=== PATIENT | female | born 1990 | race Caucasian/White ===

== ENCOUNTER 2016-08-31 09:54 | Emergency (ER) | payer OTHER ==
[2016-08-31] MEDS ORDERED: NORMAL SALINE 1,000 ML IV ONE (10:16)
--- NOTE | 2016-08-31 10:21 | ERNOTE ---
Medical Problem HPI - Narrative Date of Service: 08/31/16 - General Chief Complaint: Nausea/Vomiting Time Seen by Provider: 08/31/16 10:12 Source: patient Exam Limitations: no limitations - Immun/Allergies/Home Medications Immunizations: IMMUNIZATION HX Immunizations Up to Date Yes History of Influenza Vaccine No Hx Pneumococcal Vaccination No Allergies/Adverse Reactions: Allergies No Known Allergies Allergy (Verified 08/31/16 10:04) Home Medications: HOME MEDICATIONS [id number]/FA/Omega3/Dha/Fish Oil [ Gummies] 1 each PO DAILY 08/31/16 [Last Taken Unknown] - Pain Score Pain Score #1 Pain Score: 0 - History of Present History Narrative: Patient states she is 17 weeks , A0, and went out to eat at a [employer] restaurant last night about 2030. States about 0100 began to vomit "every 30 minutes". States her and another friend, who both ate chicken, are the only ones who are now having symptoms. Complains of NVD, denies abdominal pain, cramping, vaginal bleeding or discharge. States she has attempted sips of water last night but "threw it all back up". States she has had sips of water [employer] and is now keeping it down. Date (Duration): 08/31/16 Time (Timing): 01:00 Timing: resolved prior to arrival Severity: moderate Modifying Factors - (Worsens): Present: other - drinking/eating Review of Systems - Review of Systems Constitutional: Present: no symptoms reported, chills. Absent: recent illness, fever, diaphoresis, weakness, fatigue, malaise, weight loss EYE: Present: no symptoms reported ENT: Present: no symptoms reported Respiratory: Present: no symptoms reported. Absent: shortness of breath Cardiology: Present: no symptoms reported. Absent: chest pain, palpitations, syncope Gastrointestinal/Abdominal: Present: nausea, vomiting, diarrhea, eating less, drinking less. Absent: constipation, abdominal pain Genitourinary: Present: no symptoms reported. Absent: frequency, pain, dysuria , hematuria Musculoskeletal: Present: no symptoms reported. Absent: back pain, muscle pain Skin: Present: no symptoms reported. Absent: rash, dryness, lesions Neurological: Present: no symptoms reported Endocrine: Present: no symptoms reported Hematologic/Lymphatic: Present: no symptoms reported Psych: Present: no symptoms reported - Patient's Past Medical History Patient History - Medical: No pertinent hx Patient History - Cardiac/Respiratory: No pertinent hx Patient History - Cancer: No Hx of Cancer Patient History - Surgical Procedures: No surgical history, Other Patient History - Other: None LMP (females 10-50): LMP (Calendar): 12/07/15 - Social History Living Situations: alone Abuse History: No History of abuse Psych History: No pertinent hx Smoking Status: Never smoker Do you dip or chew tobacco: No Alcohol Use: none Drug Use: none - Immunizations Immunizations Up to Date: Yes Hx Pneumococcal Vaccination: No History of Influenza Vaccine: No Physical Exam - Physical Exam General Appearance: Present: wd/wn, alert, no apparent distress Eye Exam: Normal inspection: bilateral, PERRL: bilateral Ears, Nose, Throat: Present: normal ENT inspection, normal pharynx, dry mucous membranes. Absent: pharyngeal erythema, pharyngeal swelling, tonsillar exudate Neck: Present: normal inspection, nontender Respiratory: Present: no respiratory distress, normal breath sounds, no accessory muscle use, chest nontender, lungs clear. Absent: crackles, rales, rhonchi, stridor, wheezing Cardiovascular/Chest: Present: regular rate, rhythm, no murmur, normal peripheral pulses Peripheral Pulses: N=norm/S=strong/W=weak/B=bound/A=absent: Radial (R): Normal, Radial (L): Normal Gastrointestinal/Abdominal: Present: normal bowel sounds, nontender, nondistended, soft, no organomegaly Rectal Exam: Present: deferred Back Exam: Present: normal range of motion, no CVA tenderness, no vertebral tenderness Extremity Exam: Present: normal inspection, non-tender, normal range of motion, pedal edema Neurological Exam: Present: alert, oriented, normal mood/affect, no motor/ sensory deficits Skin Exam: Present: normal color, warm/dry Lymphatic Exam: Present: no adenopathy ED Progress - Results and Orders Patient's Lab Results:: I have reviewed the patient's lab results. - Vital Signs Patient's Vital Signs:: I have reviewed the patient's vital signs. Vital Signs: Vital Signs 08/31/16 09:58 Temperature 36.1 C L Pulse Rate 83 Respiratory 15 Rate Blood Pressure 134/75 O2 Sat by Pulse 98 Oximetry - Progress/Reassessment Chief Complaint: Nausea/Vomiting Progress:: Improved Progress Note-Subjective: 08/31/16 11:09 Patient states she feels better after 1/3 IVF infused. States she has not vomited since arriving in ED. Continues to deny abdominal pain. Will wait for urine sample and proceed with ice chips. Continues to decline Zofran at this time. 08/31/16 12:10 Continues to deny NVD. States she feels significantly better after IVF in. Urine sample obtained, awaiting lab results. Patient consumed 1/2 cup ice chips , will have her take sips of water. Patient updated on lab results, awaiting urine results. Departure - Departure Clinical Impression: Gastroenteritis Qualifiers: Weeks of gestation: 17 weeks Qualified Code(s): Z3A.17 - 17 weeks gestation of Disposition: Home Follow Up Needed Condition: Good Instructions: Viral Gastroenteritis, Adult, [id number], Form - Excuse from Work, School, or Physical Activity Additional Instructions: Off work today. Continue to push fluids, water or Gatorade. Take previously prescribed Zofran as needed if nausea occurs. Keep previously scheduled appointment with OBGYN physician for next week. Return to ED if vomiting/ diarrhea resumes, abdominal pain/cramping or vaginal bleeding or discharge occurs.
--- OUTSIDE RECORDS SUMMARY | 2016-08-31 10:25 | XMS REPORT | Summary of Care ---
:1990 Author Organization [facility] Address [address] [place] [address] Care Team Providers Name Role Phone Mingo Last Primary Care Physician Encounter Date(s): 08/05/16 - 08/05/16 [facility], [address] [place] [id number] Discharge Diagnosis: 13 weeks gestation of Discharge Disposition: 01 Discharged to Home or Self Care Attending Physician: Yary Adler MD Referring Physician: Yary Adler MD Vital Signs Most recent to oldest [Reference Range]: 1 Peripheral Pulse Rate [60-100 bpm] 152 bpm *>HHI* (08/05/16 10:31 AM) Blood Pressure [90-130/60-90 mmHg] 117/81mmHg (08/05/16 10:31 AM) Mean Arterial Pressure, Cuff 93 mmHg (08/05/16 10:31 AM) Most recent to oldest [Reference Range]: 1 Weight Dosing 115.50 kg1 (08/05/16 10:32 AM) Weight Measured 115.5 kg (08/05/16 10:31 AM) 1Result Comment: This result was because the dosing weight was either not entered or it is>30 days old. This result is based off: Weight Measured August 05, 2016 10:31:00 COUNTER WAITER by Moraima Briggs CMA Problem List Condition Effective Dates Status Health Status Informant Abnormal pap smear(Confirmed) Active (Confirmed) 05/06/16 Active Allergies, Adverse Reactions, Alerts No Known Medication Allergies Medications Augmentin 875 mg-125 mg oral tablet 875 mg, Oral, q12hr interval, # 14 tab(s), 0 Refill(s), Start Date: 04/18/16 11: 15:00 CDT, [facility]acy: [facility] [place], [place] Start Date: 04/18/16 Stop Date: 05/22/16 Status: CompletedDiflucan 150 mg oral tablet 1 tab(s), Oral, q3day, May discontinue after 1 or 2 doses if symptoms resolve., # 3 tab(s), 0 Refill(s), Start Date: 04/29/16 12:31:00 COUNTER WAITER, [facility] [place] [place] Special Instructions: May discontinue after 1 or 2 doses if symptoms resolve. Start Date: 04/29/16 Stop Date: 05/22/16 Status: Completedgabapentin 300 mg oral capsule 1 cap(s), Oral, TID, # 90 cap(s), 0 Refill(s), Start Date: 04/17/14 15:35:00 COUNTER WAITER , Pharmacy: [facility] [place], [place] Start Date: 04/17/14 Stop Date: 10/16/15 Status: DiscontinuedHYDROcodone-acetaminophen 5 mg-325 mg oral tablet 1 tab(s), Oral, q6hr, PRN for pain, 0 Refill(s) Start Date: 02/06/14 Stop Date: 02/27/14 Status: Discontinuedibuprofen 200 mg, Oral, q6hr interval, PRN pain mild 1-3, takes 2-3 tabs as needed, 0 Refill(s) Special Instructions: takes 2-3 tabs as needed Start Date: 02/27/14 Stop Date: 07/07/16 Status: DiscontinuedLo Minastrin Fe 1 mg-10 mcg oral tablet, chewable 1 tab(s), Oral, Daily, x2, # 28 tab(s), 0 Refill(s), Start Date: 04/18/16 10:59: 00 CDT, [id number], 11/13/16 Special Instructions: x2 Start Date: 04/18/16 Stop Date: 04/21/16 Status: DiscontinuedPrenate Elite 1 tab(s), Oral, Daily, 0 Refill(s), Start Date: 07/07/16 10:06:00 COUNTER WAITER Start Date: 07/07/16 Status: OrderedYaz 3 mg-0.02 mg oral tablet 1 tab(s), Oral, Daily, # 84 tab(s), 3 Refill(s), Start Date: 12/01/14 10:13:00 CDT, Pharmacy: [facility] [place], [place] Start Date: 12/01/14 Stop Date: 10/16/15 Status: DiscontinuedZofran 4 mg oral tablet 1 tab(s), Oral, q6hr, PRN nausea/vomiting, # 30 tab(s), 1 Refill(s), Start Date : 06/23/16 9:57:00 COUNTER WAITER, Pharmacy: [facility] [place], [place] Start Date: 06/23/16 Stop Date: 08/05/16 Status: DiscontinuedZofran 4 mg oral tablet 1 tab(s), Oral, q6hr, PRN nausea/vomiting, # 30 tab(s), 1 Refill(s), Start Date : 06/23/16 9:57:00 COUNTER WAITER Start Date: 06/23/16 Stop Date: 06/23/16 Status: Discontinued Results No data available for this section Immunizations No data available for this section Procedures Procedure Date Related Diagnosis Body Site Epidural Steroid Injection - Lumbar1 03/01/14 LEEP2 05/20/11 Colposcopy 03/25/11 Colposcopy 06/04/10 1auto-populated from documented surgical [id number] SQUAMOUS DYSPLASIA (TOMER 2 ) MARGINS FREE OF INVOLVEMENT Social History No data available for this section Assessment and Plan No data available for this section
--- OUTSIDE RECORDS SUMMARY | 2016-08-31 10:25 | XMS REPORT | Summary of Care ---
:1990 Author Organization [facility] Address [address] [place] [address]- Care Team Providers Name Role Phone Mingo Last Primary Care Physician Encounter Date(s): 07/07/16 - 07/07/[address] [id number] Discharge Disposition: Discharged to Home or Self Care Attending Physician: Ermelinda Jerome CNM Admitting Physician: Ermelinda Jerome CNM Vital Signs No data available for this section Problem List Condition Effective Dates Status Health Status Informant Abnormal pap smear(Confirmed) Active (Confirmed) 05/06/16 Active Allergies, Adverse Reactions, Alerts No Known Medication Allergies Medications Augmentin 875 mg-125 mg oral tablet 875 mg, Oral, q12hr interval, # 14 tab(s), 0 Refill(s), Start Date: 04/18/16 11: 15:00 CDT, [facility] [facility] [place] Start Date: 04/18/16 Stop Date: 05/22/16 Status: CompletedDiflucan 150 mg oral tablet 1 tab(s), Oral, q3day, May discontinue after 1 or 2 doses if symptoms resolve., # 3 tab(s), 0 Refill(s), Start Date: 04/29/16 12:31:00 INFORMATION SECURITY RISK ANALYST, Pharmacy: [facility] [place] [place] Start Date: 04/29/16 Stop Date: 05/22/16 Status: Completedgabapentin 300 mg oral capsule 1 cap(s), Oral, TID, # 90 cap(s), 0 Refill(s), Start Date: 04/17/14 15:35:00 INFORMATION SECURITY RISK ANALYST , Pharmacy: [facility] [place], [place] Start Date: 04/17/14 Stop Date: 10/16/15 Status: DiscontinuedHYDROcodone-acetaminophen 5 mg-325 mg oral tablet 1 tab(s), Oral, q6hr, PRN for pain, 0 Refill(s) Start Date: 02/06/14 Stop Date: 02/27/14 Status: Discontinuedibuprofen 200 mg, Oral, q6hr interval, PRN pain mild 1-3, takes 2-3 tabs as needed, 0 Refill(s) Start Date: 02/27/14 Stop Date: 07/07/16 Status: DiscontinuedLo Minastrin Fe 1 mg-10 mcg oral tablet, chewable 1 tab(s), Oral, Daily, x2, # 28 tab(s), 0 Refill(s), Start Date: 04/18/16 10:59: 00 CDT, [id number], 11/13/16 Start Date: 04/18/16 Stop Date: 04/21/16 Status: DiscontinuedPrenate Elite 1 tab(s), Oral, Daily, 0 Refill(s), Start Date: 07/07/16 10:06:00 INFORMATION SECURITY RISK ANALYST Start Date: 07/07/16 Status: OrderedYaz 3 mg-0.02 mg oral tablet 1 tab(s), Oral, Daily, # 84 tab(s), 3 Refill(s), Start Date: 12/01/14 10:13:00 CDT, Pharmacy: [facility] [place] [place] Start Date: 12/01/14 Stop Date: 10/16/15 Status: DiscontinuedZofran 4 mg oral tablet 1 tab(s), Oral, q6hr, PRN nausea/vomiting, # 30 tab(s), 1 Refill(s), Start Date : 06/23/16 9:57:00 INFORMATION SECURITY RISK ANALYST, [facility] [facility] [place] Start Date: 06/23/16 Status: OrderedZofran 4 mg oral tablet 1 tab(s), Oral, q6hr, PRN nausea/vomiting, # 30 tab(s), 1 Refill(s), Start Date : 06/23/16 9:57:00 INFORMATION SECURITY RISK ANALYST Start Date: 06/23/16 Stop Date: 06/23/16 Status: Discontinued Results Patient Viewable Results Most recent to oldest [Reference Range]: 1 WBC [4.8-10.8 thou/mm3] 10.3 thou/mm3 (07/07/16 11:00 AM) RBC [4.20-5.40 Mil/mm3] 5.11 Mil/mm3 (07/07/16 11:00 AM) Hgb [12.0-16.0 g/dL] 13.6 g/dL (07/07/16 11:00 AM) Hct [37.0-47.0 %] 41.8 % (07/07/16 11:00 AM) MCV [80.0-94.0 fL] 81.8 fL (07/07/16 11:00 AM) MCH [25.0-38.0 pg/cell] 26.6 pg/cell (07/07/16 11:00 AM) MCHC [31.0-37.0 g/dL] 32.5 g/dL (07/07/16 11:00 AM) RDW [1.0-48.0 fL] 43.0 fL (07/07/16 11:00 AM) Platelet [130-400 thou/mm3] 309 thou/mm3 (07/07/16 11:00 AM) Neutrophils % Auto [50.0-75.0 %] 68.6 % (07/07/16 11:00 AM) Immature Granulocyte Auto [0.1-2.0 %] 0.4 % (07/07/16 11:00 AM) Lymphocytes % Auto [15.0-41.0 %] 24.1 % (07/07/16 11:00 AM) Monocytes % Auto [2.0-10.0 %] 5.6 % (07/07/16 11:00 AM) Eosinophils % Auto [0.0-6.0 %] 1.0 % (07/07/16 11:00 AM) Basophil % Auto [0.0-1.0 %] 0.3 % (07/07/16 11:00 AM) Neutrophils Absolute [1.5-5.9 thou/mm3] 7.1 thou/mm3 *HI* (07/07/16 11:00 AM) Immature Gran Absolute [0.01-0.03 thou/mm3] 0.04 thou/mm3 *HI* (07/07/16 11:00 AM) Lymphocytes Absolute [1.5-4.0 thou/mm3] 2.5 thou/mm3 (07/07/16 11:00 AM) Monocytes Absolute [0.0-0.9 thou/mm3] 0.6 thou/mm3 (07/07/16 11:00 AM) Eosinophil Absolute [0.0-0.7 thou/mm3] 0.1 thou/mm3 (07/07/16 11:00 AM) Basophil Absolute [0.0-0.2 thou/mm3] 0.0 thou/mm3 (07/07/16 11:00 AM) Hep B Surf Ag [Non-Reactive] Non-Reactive (07/07/16 11:00 AM) HIV 1/2 Ab [Non-Reactive] Non-Reactive (07/07/16 11:00 AM) Rubella IgG [Immune] Testing was performed by the [employer] Rubella IgG assay. (Yvonne FlatBurger) (07/07/16 11:00 AM) ABO/Rh O NEG *Unknown* (07/07/16 11:00 AM) Antibody Screen Negative ABSC (07/07/16 11:00 AM) Microbiology Reports TEST:Chlamydia/GC by PCR STATUS:Auth (Verified) BODY SITE: SOURCE:Vaginal COLLECTED DATE/TIME:07/07/16 10:30 AMFINAL REPORTNegative for Chlamydia trachomatis by PCR Negative for Neisseria gonorrhoeae by PCR Immunizations No data available for this section Procedures Procedure Date Related Diagnosis Body Site Epidural Steroid Injection - Lumbar1 03/01/14 LEEP2 05/20/11 Colposcopy 03/25/11 Colposcopy 06/04/10 1auto-populated from documented surgical [id number] SQUAMOUS DYSPLASIA (TOMER 2 ) MARGINS FREE OF INVOLVEMENT Social History No data available for this section Assessment and Plan No data available for this section
--- OUTSIDE RECORDS SUMMARY | 2016-08-31 10:26 | XMS REPORT | Summary of Care ---
:1990 Author Organization [facility] Address [address] [place] [address] Care Team Providers Name Role Phone Mingo Last Primary Care Physician Encounter Date(s): 07/07/16 - 07/07/16 [facility], [address] [place] [id number] Discharge Diagnosis: Maternal morbid obesity in first trimester, antepartum Discharge Diagnosis: Discharge Diagnosis: Hx LEEP (loop electrosurgical excision procedure), cervix, Discharge Disposition: 01 Discharged to Home or Self Care Attending Physician: Ermelinda Jerome CNM Referring Physician: Ermelinda Jerome CNM Vital Signs Most recent to oldest [Reference Range]: 1 Peripheral Pulse Rate [60-100 bpm] 75 bpm (07/07/16 9:59 AM) Blood Pressure [90-130/60-90 mmHg] 115/73mmHg (07/07/16 9:59 AM) Height/Length Measured 170 cm (07/07/16 9:59 AM) Weight Dosing 115.40 kg1 (07/07/16 10:07 AM) Weight Measured 115.4 kg (07/07/16 9:59 AM) Body Mass Index Measured 39.93 kg/m2 (07/07/16 9:59 AM) 1Result Comment: This result was because the dosing weight was either not entered or it is>30 days old. This result is based off: Weight Measured July 07, 2016 09:59:00 LLAMA FARMER by Sumi Hinton MA Problem List Condition Effective Dates Status Health Status Informant Abnormal pap smear(Confirmed) Active (Confirmed) 05/06/16 Active Allergies, Adverse Reactions, Alerts No Known Medication Allergies Medications Augmentin 875 mg-125 mg oral tablet 875 mg, Oral, q12hr interval, # 14 tab(s), 0 Refill(s), Start Date: 04/18/16 11: 15:00 CDT, [facility] [place] [place] Start Date: 04/18/16 Stop Date: 05/22/16 Status: CompletedDiflucan 150 mg oral tablet 1 tab(s), Oral, q3day, May discontinue after 1 or 2 doses if symptoms resolve., # 3 tab(s), 0 Refill(s), Start Date: 04/29/16 12:31:00 LLAMA FARMER, Pharmacy: [place], [place] Start Date: 04/29/16 Stop Date: 05/22/16 Status: Completedgabapentin 300 mg oral capsule 1 cap(s), Oral, TID, # 90 cap(s), 0 Refill(s), Start Date: 04/17/14 15:35:00 LLAMA FARMER , Pharmacy: [place], [place] Start Date: 04/17/14 Stop Date: 10/16/15 [...] Refill(s), Start Date: 04/18/16 10:59: 00 CDT, [id number], 11/13/16 Start Date: 04/18/16 Stop Date: 04/21/16 Status: DiscontinuedPrenate Elite 1 tab(s), Oral, Daily, 0 Refill(s), Start Date: 07/07/16 10:06:00 LLAMA FARMER Start Date: 07/07/16 Status: OrderedYaz 3 mg-0.02 mg oral tablet 1 tab(s), Oral, Daily, # 84 tab(s), 3 Refill(s), Start Date: 12/01/14 10:13:00 CDT, Pharmacy: [facility] [place] [place] Start Date: 12/01/14 Stop Date: 10/16/15 Status: DiscontinuedZofran 4 mg oral tablet 1 tab(s), Oral, q6hr, PRN nausea/vomiting, # 30 tab(s), 1 Refill(s), Start Date : 06/23/16 9:57:00 LLAMA FARMER, Pharmacy: [facility] [place], [place] Start Date: 06/23/16 Status: OrderedZofran 4 mg oral tablet 1 tab(s), Oral, q6hr, PRN nausea/vomiting, # 30 tab(s), 1 Refill(s), Start Date : 06/23/16 9:57:00 LLAMA FARMER Start Date: 06/23/16 Stop Date: 06/23/16 Status: Discontinued Results No data available for this section Immunizations No data available for this section Procedures Procedure Date Related Diagnosis Body Site Epidural Steroid Injection - Lumbar1 03/01/14 LEEP2 05/20/11 Colposcopy 03/25/11 Colposcopy 06/04/10 1auto-populated from documented surgical [id number] SQUAMOUS DYSPLASIA (TOMER 2 ) MARGINS FREE OF INVOLVEMENT Social History No data available for this section Assessment and Plan No data available for this section
[2016-08-31 10:31] LABS: Hematocrit 37.6 % (37.0-47.0); Hemoglobin 12.6 gm/dL (12.5-16.0); Mean Cell Volume 82.3 fl (78-100); Mean Corpuscular Hemoglobin 27.6 pg (27-31); Mean Corpuscular Hgb Conc 33.5 g/dl (32-36); Neutrophil # 7.9 K/mm3 (1.3-6.0); Neutrophil % 71.4 % (42-75.0); Platelet Count 259 K/mm3 (150-450); Red Blood Count 4.57 M/mm3 (4.2-5.4); Red Cell Distribution Width 14.5 % (11.5-14.0); White Blood Count 11.1 K/mm3 (4.0-10.5)
[2016-08-31 10:44] LABS: Albumin * 2.9 gm/dl (3.4-5.0); BUN/Creatinine Ratio 12.5 (9.0-21.6); Bilirubin, Total 0.5 mg/dL (0.0-1.1); Ca. Corrected For Albumin 9.3 mg/dL (8.4-10.2); Calcium * 8.7 mg/dL (7.9-10.9); Carbon Dioxide 21.5 mmol/L (24-32.6); Potassium 3.5 mmol/L (3.4-4.6); Total Protein 6.9 gm/dL (6.2-8.2)
[2016-08-31 12:08] LABS: Urine Appearance Slightly Cloudy; Urine Bilirubin Negative (NEGATIVE); Urine Blood Negative /ul (NEGATIVE); Urine Color Yellow; Urine Ketone 15 mg/dL (NEGATIVE); Urine Specific Gravity 1.025 SP.GR. (1.005-1.010)
[2016-08-31 12:09] LABS: Urine Bacteria 1+; Urine Nitrite Negative (NEGATIVE); Urine Protein Negative (NEGATIVE); Urine RBC None Seen /hpf (0-5); Urine Urobilinogen Normal (NORMAL); Urine WBC 0-5 /hpf (0-5)
[2016-08-31 12:39] VITALS: BP 121/76
== END 2016-08-31 12:24 | disposition home or self-care (01) ==
LOC: ER 09:54
DX: A08.4 Viral intestinal infection, unspecified (principal); Z3A.17 17 weeks gestation of pregnancy; Z33.1 Pregnant state, incidental